=== PATIENT | male | born 1945 | race Caucasian/White ===

== ENCOUNTER 2018-01-24 18:57 | Inpatient (IN) ==
[2018-01-24] MEDS ORDERED: SODIUM CHLORIDE 0.9% 1,000 ML IV STA (19:35)
[2018-01-24 19:47] LABS: Basophils # 0.1 10*3/uL (0.0-0.2); Basophils % 0.2 % (0.0-0.8); Eosinophils # 0.1 10*3/uL (0.0-0.87); Eosinophils % 0.2 % (0.00-10.9); Hematocrit 39.4 VOL% (42.0-52.0); Hemoglobin 12.4 GM/DL (14.0-18.0); Immature Granulocytes % 0.4 %; Lymphocytes # 0.7 10*3/uL (1.4-4.0); Lymphocytes % 2.9 % (21.2-54.2); Mean Corpuscular HGB Conc 31.5 GM/DL (32-36); Mean Corpuscular Hemoglobin 25 PG (27-34); Mean Corpuscular Volume 79.8 FL (87-102); Mean Platelet Volume 11.6 FL (9.6-12.0); Monocytes # 0.9 10*3/uL (0.11-0.8); Neutrophils # 21.1 10*3/uL (1.4-7.4); Neutrophils % 92.3 % (38.7-73.9); Platelet Count 242 T/CUMM (130-400); Red Blood Count 4.94 MC/CUMM (3.8-5.5); Red Cell Distribution Width 15.7 % (9.3-17.3); White Blood Count 22.9 T/CUMM (4-12)
[2018-01-24 20:01] LABS: Lactic Acid 5.9 MMOL/L (0.4-2.0)
[2018-01-24 20:25] LABS: Alanine Aminotransferase 15 U/L (16-61); Albumin 2.6 G/DL (3.4-5.0); Alkaline Phosphatase 197 U/L (45-117); Aspartate Amino Transferase 38 U/L (0-37); Blood Urea Nitrogen 21 MG/DL (7-18); Calcium 9.2 MG/DL (8.5-10.1); Glucose 163 MG/DL (74-106); Osmolality,Calculated 289.1 MOS/KG (273-304); Potassium 3.4 MMOL/L (3.5-5.1); Sodium 142 MMOL/L (136-145); Total Protein 7.1 G/DL (6.4-8.3)
[2018-01-24 20:26] LABS: Band Neutrophils 1 % (0-10); Lymphocytes 3 % (20-55); Platelet Estimate Adequate; Segmented Neutrophils 94 % (50-85); Total Cells Counted 100
[2018-01-24] MEDS ORDERED: CEFEPIME 2,000 MG in SODIUM CHLORIDE 0.9% 100 ML IV STA (20:46)
[2018-01-24] MEDS ORDERED: VANCOMYCIN INJ 1,000 MG in SODIUM CHLORIDE 0.9% 250 ML IV STA (20:46)
[2018-01-24] MEDS ORDERED: SODIUM CHLORIDE 0.9% 2,000 ML IV STA (20:55)
[2018-01-24] MEDS ORDERED: CEFEPIME 2,000 MG VIAL ONE (21:06)
[2018-01-24] MEDS ORDERED: VANCOMYCIN 1,000 MG VIAL ONE (21:06)
[2018-01-24] MEDS ORDERED: ONDANSETRON 4 MG/2 ML VIAL IV PRN (22:38)
[2018-01-24 23:53] LABS: Apearance,Urine CLOUDY (Clear); Bilirubin,Urine Negative (Negative); Blood, Urine Large mg/dL (Negative); Glucose,Urine (UA) Negative (Negative); Granular Casts,Urine 7 /LPF (0-1); Hyaline Casts,Urine 80 /LPF (0-3); Ketones,Urine Negative (Negative); Mucus,Urine Many /LPF (Occasional); Nitrite,Urine Negative (Negative); Protein,Urine 30 MG/DL; RBC,Urine 95 /HPF (0-4); Urine Color Amber (Yellow); Urine Specific Gravity 1.018 (1.001-1.035); WBC,Urine 137 /HPF (0-6)
[2018-01-25] MEDS: SODIUM CHLORIDE 0.9% 1,000 ML IV SCH ×2 (00:04→11:10)
[2018-01-25] MEDS: PIPERACILLIN/TAZOBACTAM 3,375 MG in SODIUM CHLORIDE 0.9% 100 ML IV SCH ×2 (00:05→08:55)
[2018-01-25 00:14] LABS: Lactic Acid 3.9 MMOL/L (0.4-2.0)
[2018-01-25 03:54] LABS: Basophils % 0.2 % (0.0-0.8); Hematocrit 31.9 VOL% (42.0-52.0); Hemoglobin 10.3 GM/DL (14.0-18.0); Immature Granulocytes % 0.8 %; Immature Granulocytes Absolute 0.15 #; Lymphocytes # 0.9 10*3/uL (1.4-4.0); Mean Corpuscular HGB Conc 32.3 GM/DL (32-36); Mean Corpuscular Hemoglobin 25 PG (27-34); Mean Corpuscular Volume 77.8 FL (87-102); Mean Platelet Volume 11.6 FL (9.6-12.0); Monocytes % 5.7 % (1.7-12.7); Neutrophils # 16.1 10*3/uL (1.4-7.4); Neutrophils % 88.3 % (38.7-73.9); Platelet Count 151 T/CUMM (130-400); Red Cell Distribution Width 15.7 % (9.3-17.3); White Blood Count 18.3 T/CUMM (4-12)
[2018-01-25 04:17] LABS: Albumin 2.2 G/DL (3.4-5.0); Bilirubin,Total 1.2 MG/DL (0.2-1.0); Calcium 8.2 MG/DL (8.5-10.1); Potassium 4.6 MMOL/L (3.5-5.1); Total Protein 5.9 G/DL (6.4-8.3)
[2018-01-25] MEDS ORDERED: PNEUMOCOCCAL VACCINE (13 VALENT) 0.5 ML SYRINGE IM ONE (09:00)
[2018-01-25] MEDS ORDERED: PANTOPRAZOLE 40 MG TABLET PO SCH (09:00)
[2018-01-25] MEDS: PANTOPRAZOLE 40 MG VIAL IV SCH (10:58)
[2018-01-25] MEDS: CEFEPIME 1,000 MG in SYRINGE 1 EACH IV SCH ×2 (11:05→22:54)
[2018-01-25] MEDS ORDERED: ALBUMIN 25% 12.5 GM in PREMIX 1 EACH IV PRN (11:40)
[2018-01-25] MEDS ORDERED: ALBUMIN 25% 12.5 GM/50 ML VIAL IV ONE (11:47)
[2018-01-25] MEDS: VANCOMYCIN INJ 1,250 MG in SODIUM CHLORIDE 0.9% 250 ML IV SCH (13:59)
[2018-01-25 15:06] LABS: RBC,Peritoneal Fluid 9 T/CUMM
[2018-01-25 15:27] LABS: Neutrophils,Peritoneal Fluid 24 %
[2018-01-26] MEDS: VANCOMYCIN INJ 1,250 MG in SODIUM CHLORIDE 0.9% 250 ML IV SCH ×2 (00:28→13:25)
[2018-01-26] MEDS: SODIUM CHLORIDE 0.9% 1,000 ML IV SCH ×2 (00:28→13:22)
[2018-01-26 05:03] LABS: Basophils % 0.4 % (0.0-0.8); Eosinophils # 0.4 10*3/uL (0.0-0.87); Eosinophils % 6.1 % (0.00-10.9); Hematocrit 29.4 VOL% (42.0-52.0); Hemoglobin 9.2 GM/DL (14.0-18.0); Immature Granulocytes % 0.3 %; Immature Granulocytes Absolute 0.02 #; Lymphocytes # 0.9 10*3/uL (1.4-4.0); Lymphocytes % 12.3 % (21.2-54.2); Mean Corpuscular HGB Conc 31.3 GM/DL (32-36); Mean Corpuscular Hemoglobin 25 PG (27-34); Mean Corpuscular Volume 80.1 FL (87-102); Mean Platelet Volume 11.4 FL (9.6-12.0); Monocytes # 0.7 10*3/uL (0.11-0.8); Monocytes % 10.4 % (1.7-12.7); Neutrophils # 4.9 10*3/uL (1.4-7.4); Neutrophils % 70.5 % (38.7-73.9); Platelet Count 123 T/CUMM (130-400); Red Blood Count 3.67 MC/CUMM (3.8-5.5); Red Cell Distribution Width 15.9 % (9.3-17.3); White Blood Count 6.9 T/CUMM (4-12)
[2018-01-26 05:43] LABS: Bilirubin,Total 0.9 MG/DL (0.2-1.0); Calcium 7.9 MG/DL (8.5-10.1); Osmolality,Calculated 289.6 MOS/KG (273-304); Potassium 3.5 MMOL/L (3.5-5.1); Total Protein 4.9 G/DL (6.4-8.3)
[2018-01-26] MEDS ORDERED: DEXTROSE 50% 25 GM/50 ML VIAL IV ONE (08:16)
[2018-01-26] MEDS ORDERED: DEXTROSE 50% 25 GM/50 ML VIAL IV PRN (08:19)
[2018-01-26] MEDS ORDERED: PROPOFOL 200 MG/20 ML VIAL IV ONE (11:01)
[2018-01-26] MEDS ORDERED: LIDOCAINE 2% 5 ML VIAL ONE (11:01)
[2018-01-26] MEDS: PANTOPRAZOLE 40 MG VIAL IV SCH (12:24)
[2018-01-26] MEDS: CEFEPIME 1,000 MG in SYRINGE 1 EACH IV SCH ×2 (12:25→21:50)
[2018-01-26] MEDS ORDERED: SKIN HEALING OINT (AQUAPHOR) 50 GM TUBE TOP PRN (15:11)
[2018-01-27] MEDS: VANCOMYCIN INJ 1,250 MG in SODIUM CHLORIDE 0.9% 250 ML IV SCH (01:35)
[2018-01-27 05:33] LABS: Basophils % 0.4 % (0.0-0.8); Eosinophils # 0.5 10*3/uL (0.0-0.87); Eosinophils % 7.4 % (0.00-10.9); Hematocrit 31.6 VOL% (42.0-52.0); Hemoglobin 10.3 GM/DL (14.0-18.0); Immature Granulocytes % 0.3 %; Immature Granulocytes Absolute 0.02 #; Lymphocytes % 14.7 % (21.2-54.2); Mean Corpuscular HGB Conc 32.6 GM/DL (32-36); Mean Corpuscular Hemoglobin 26 PG (27-34); Mean Corpuscular Volume 78.6 FL (87-102); Mean Platelet Volume 12.4 FL (9.6-12.0); Monocytes # 0.9 10*3/uL (0.11-0.8); Monocytes % 12.3 % (1.7-12.7); Neutrophils # 4.5 10*3/uL (1.4-7.4); Neutrophils % 64.9 % (38.7-73.9); Platelet Count 114 T/CUMM (130-400); Red Blood Count 4.02 MC/CUMM (3.8-5.5); Red Cell Distribution Width 15.7 % (9.3-17.3); White Blood Count 6.9 T/CUMM (4-12)
[2018-01-27 05:50] LABS: Osmolality,Calculated 289.6 MOS/KG (273-304); Potassium 2.9 MMOL/L (3.5-5.1)
[2018-01-27 05:54] LABS: Microcytosis 1+; Platelet Estimate Decreased
[2018-01-27 08:01] VITALS: BP 116/61
[2018-01-27] MEDS ORDERED: SPIRONOLACTONE 50 MG TABLET PO SCH (09:00)
[2018-01-27] MEDS ORDERED: FUROSEMIDE 40 MG/4 ML VIAL IV SCH (09:00)
[2018-01-27] MEDS: POTASSIUM CHLORIDE 20 MEQ TABLET PO ONE ×2 (09:31→09:43)
[2018-01-27] MEDS: PANTOPRAZOLE 40 MG VIAL IV SCH ×2 (09:31→09:43)
[2018-01-27] MEDS: CEFEPIME 1,000 MG in SYRINGE 1 EACH IV SCH ×2 (09:34→09:43)
== END 2018-01-27 13:08 | disposition home or self-care (01) | DRG 871 ==
LOC: EDBD → EDUNIT# → N.ED 18:57 → N.EDINP 22:30 → SUATTDRO 22:30 → N.2E 22:58
PROVIDERS: ADMIT Internal Medicine Infectious Disease; ATTEND Hospitalist

== ENCOUNTER 2018-03-01 17:53 | Observation (INO) ==
[2018-03-01] MEDS ORDERED: SODIUM CHLORIDE 0.9% 500 ML IV STA (18:19)
[2018-03-01 18:47] LABS: Basophils % 0.2 % (0.0-0.8); Eosinophils % 0.1 % (0.00-10.9); Hemoglobin 12.1 GM/DL (14.0-18.0); Immature Granulocytes % 0.6 %; Immature Granulocytes Absolute 0.06 #; Lymphocytes # 0.6 10*3/uL (1.4-4.0); Lymphocytes % 5.5 % (21.2-54.2); Mean Corpuscular HGB Conc 31.8 GM/DL (32-36); Mean Corpuscular Hemoglobin 25 PG (27-34); Mean Corpuscular Volume 79.8 FL (87-102); Monocytes % 9.5 % (1.7-12.7); Neutrophils # 8.5 10*3/uL (1.4-7.4); Neutrophils % 84.1 % (38.7-73.9); Platelet Count 211 T/CUMM (130-400); Red Blood Count 4.76 MC/CUMM (3.8-5.5); Red Cell Distribution Width 16.7 % (9.3-17.3); White Blood Count 10.1 T/CUMM (4-12)
[2018-03-01 19:12] LABS: Potassium 4.4 MMOL/L (3.5-5.1)
[2018-03-01] MEDS ORDERED: ENOXAPARIN 40 MG/0.4 ML SYRINGE SUBCUT SCH (21:59)
[2018-03-01] MEDS ORDERED: ONDANSETRON 4 MG/2 ML VIAL IV PRN (21:59)
[2018-03-01] MEDS ORDERED: SODIUM CHLORIDE 0.9% 500 ML IV ONE (21:59)
[2018-03-01] MEDS: DOCUSATE SODIUM 100 MG CAPSULE PO SCH (22:30)
[2018-03-01] MEDS: SODIUM CHLORIDE 0.9% 1,000 ML IV SCH (23:05)
[2018-03-02] MEDS: SODIUM CHLORIDE 0.9% 1,000 ML IV SCH (03:13)
[2018-03-02] MEDS ORDERED: PANTOPRAZOLE 40 MG TABLET PO SCH (09:00)
[2018-03-02] MEDS ORDERED: ASPIRIN CHEW 81 MG TABLET PO SCH (09:00)
[2018-03-02] MEDS ORDERED: FEXOFENADINE 180 MG TABLET PO SCH (09:00)
[2018-03-02] MEDS: DOCUSATE SODIUM 100 MG CAPSULE PO SCH (09:08)
[2018-03-02 12:12] VITALS: BP 145/71
== END 2018-03-02 14:48 | disposition home or self-care (01) ==
LOC: EDUNIT# → EDBD → N.EDINP 17:53 → N.ED 17:53 → N.TELES 21:10
PROVIDERS: ADMIT Hospitalist; ATTEND Hospitalist

== ENCOUNTER 2018-03-23 17:35 | Inpatient (IN) ==
[2018-03-23] MEDS ORDERED: SODIUM CHLORIDE 0.9% 1,000 ML IV STA (18:42)
[2018-03-23 19:04] LABS: Basophils % 0.1 % (0.0-0.8); Hematocrit 41.9 VOL% (42.0-52.0); Hemoglobin 13.2 GM/DL (14.0-18.0); Immature Granulocytes % 0.6 %; Immature Granulocytes Absolute 0.07 #; Lymphocytes # 0.4 10*3/uL (1.4-4.0); Lymphocytes % 3.7 % (21.2-54.2); Mean Corpuscular HGB Conc 31.5 GM/DL (32-36); Mean Corpuscular Hemoglobin 24 PG (27-34); Mean Corpuscular Volume 77.3 FL (87-102); Mean Platelet Volume 9.8 FL (9.6-12.0); Monocytes # 1.1 10*3/uL (0.11-0.8); Monocytes % 9.1 % (1.7-12.7); NRBC # 0.02 10*3/uL; Neutrophils # 10.4 10*3/uL (1.4-7.4); Neutrophils % 86.5 % (38.7-73.9); Platelet Count 539 T/CUMM (130-400); Red Blood Count 5.42 MC/CUMM (3.8-5.5); Red Cell Distribution Width 16.8 % (9.3-17.3)
[2018-03-23 19:32] LABS: Lactic Acid 4.5 MMOL/L (0.4-2.0)
[2018-03-23 19:34] LABS: Alanine Aminotransferase 25 U/L (16-61); Albumin 2.3 G/DL (3.4-5.0); Alkaline Phosphatase 497 U/L (45-117); Aspartate Amino Transferase 48 U/L (0-37); Blood Urea Nitrogen 71 MG/DL (7-18); Calcium 10.9 MG/DL (8.5-10.1); Glucose 82 MG/DL (74-106); Osmolality,Calculated 277.9 MOS/KG (273-304); Sodium 129 MMOL/L (136-145); Total Protein 8.4 G/DL (6.4-8.3); Troponin I Only < 0.015 NG/ML (0.00-0.045)
[2018-03-23 19:37] LABS: Potassium 6.5 MMOL/L (3.5-5.1)
[2018-03-23 19:41] LABS: Anisocytosis 1+; Platelet Estimate Increased; Polychromasia Few; Total Cells Counted 100
[2018-03-23] MEDS ORDERED: CALCIUM GLUCONATE 2,000 MG in SODIUM CHLORIDE 0.9% 100 ML IV ONE (19:44)
[2018-03-23] MEDS ORDERED: INSULIN REGULAR 100 UNIT/ML IV STA (19:45)
[2018-03-23] MEDS ORDERED: DEXTROSE 50% 25 GM/50 ML VIAL IV STA (19:45)
[2018-03-23 20:37] LABS: Band Neutrophils 4 % (0-10); Lymphocytes 10 % (20-55); Microcytosis 1+; Segmented Neutrophils 85 % (50-85)
[2018-03-23] MEDS ORDERED: ALBUTEROL/IPRATROPIUM 3 ML NEB RESP TX PRN (20:48)
[2018-03-23] MEDS ORDERED: ALBUTEROL 2.5 MG/3 ML NEB RESP TX PRN (20:48)
[2018-03-23] MEDS ORDERED: ONDANSETRON 4 MG/2 ML VIAL IV PRN (20:54)
[2018-03-23] MEDS ORDERED: CALCIUM GLUCONATE 1,000 MG/10 ML VIAL IV ONE (20:59)
[2018-03-23] MEDS ORDERED: DEXTROSE 50% 25 GM/50 ML SYRINGE IV ONE (20:59)
[2018-03-23] MEDS ORDERED: FUROSEMIDE 40 MG/4 ML VIAL IV ONE (22:56)
[2018-03-23] MEDS: PANTOPRAZOLE 40 MG VIAL IV SCH (23:09)
[2018-03-23 23:31] LABS: Lactic Acid 5.5 MMOL/L (0.4-2.0)
[2018-03-23 23:46] LABS: INR 1.2
[2018-03-23] MEDS: SODIUM POLYSTYRENE SULFATE 15 GM/60 ML BOTTLE PO SCH (23:54)
[2018-03-24] MEDS ORDERED: SODIUM CHLORIDE 0.9% 250 ML IV ONE (02:29)
[2018-03-24 03:24] LABS: Apearance,Urine CLOUDY (Clear); Bilirubin,Urine Negative (Negative); Blood, Urine Moderate mg/dL (Negative); Glucose,Urine (UA) Negative (Negative); Hyaline Casts,Urine 105 /LPF (0-3); Ketones,Urine Negative (Negative); Mucus,Urine Many /LPF (Occasional); Nitrite,Urine Negative (Negative); Protein,Urine Negative; RBC,Urine 28 /HPF (0-4); Urine Color Amber (Yellow); Urine Specific Gravity 1.014 (1.001-1.035); WBC,Urine 75 /HPF (0-6)
[2018-03-24] MEDS: SODIUM POLYSTYRENE SULFATE 15 GM/60 ML BOTTLE PO SCH ×4 (05:08→21:36)
[2018-03-24 06:17] LABS: Basophils % 0.1 % (0.0-0.8); Hematocrit 35.6 VOL% (42.0-52.0); Hemoglobin 11.7 GM/DL (14.0-18.0); Immature Granulocytes % 0.6 %; Immature Granulocytes Absolute 0.11 #; Lymphocytes # 0.4 10*3/uL (1.4-4.0); Lymphocytes % 2.1 % (21.2-54.2); Mean Corpuscular HGB Conc 32.9 GM/DL (32-36); Mean Corpuscular Hemoglobin 25 PG (27-34); Mean Corpuscular Volume 74.8 FL (87-102); Mean Platelet Volume 9.8 FL (9.6-12.0); Monocytes # 1.5 10*3/uL (0.11-0.8); Monocytes % 8.4 % (1.7-12.7); NRBC # 0.03 10*3/uL; Neutrophils # 15.5 10*3/uL (1.4-7.4); Neutrophils % 88.8 % (38.7-73.9); Platelet Count 435 T/CUMM (130-400); Red Blood Count 4.76 MC/CUMM (3.8-5.5); Red Cell Distribution Width 16.5 % (9.3-17.3); White Blood Count 17.5 T/CUMM (4-12)
[2018-03-24 06:38] LABS: Albumin 1.9 G/DL (3.4-5.0); Bilirubin,Total 2.8 MG/DL (0.2-1.0); Calcium 10.1 MG/DL (8.5-10.1); Osmolality,Calculated 282.7 MOS/KG (273-304); Total Protein 6.2 G/DL (6.4-8.3)
[2018-03-24 07:16] LABS: Band Neutrophils 6 % (0-10); Lymphocytes 3 % (20-55); Segmented Neutrophils 82 % (50-85); Total Cells Counted 100
[2018-03-24 07:17] LABS: Hypochromasia 1+; Microcytosis 1+
[2018-03-24 07:19] LABS: Burr Cells Slight
[2018-03-24] MEDS ORDERED: LORATADINE 10 MG TABLET PO SCH (09:00)
[2018-03-24] MEDS: FUROSEMIDE 40 MG/4 ML VIAL IV SCH ×2 (09:03→17:35)
[2018-03-24] MEDS ORDERED: ALBUMIN 25% 12.5 GM in PREMIX 1 EACH IV ONE (10:08)
[2018-03-24] MEDS ORDERED: ALBUMIN 5% 12.5 GM/250 ML VIAL IV ONE (10:10)
[2018-03-24] MEDS ORDERED: TISSUE ADHESIVE 1 EACH APPLICATOR TOP ONE (10:19)
[2018-03-24] MEDS ORDERED: SODIUM CHLORIDE 0.9% 1,000 ML IV ONE (10:22)
[2018-03-24] MEDS ORDERED: ALBUMIN 25% 25 GM/100 ML VIAL IV ONE (10:25)
[2018-03-24 10:34] LABS: Lactic Acid 12.5 MMOL/L (0.4-2.0)
[2018-03-24] MEDS ORDERED: NOREPINEPHRINE 8 MG in SODIUM CHLORIDE 0.9% 242 ML IV PRN (10:36)
[2018-03-24] MEDS ORDERED: NOREPINEPHRINE 4 MG/4 ML VIAL IV ONE ×2 (10:37→10:42)
[2018-03-24] MEDS ORDERED: MORPHINE 4 MG/1 ML VIAL IV PRN (13:37)
[2018-03-24] MEDS: PANTOPRAZOLE 40 MG VIAL IV SCH (21:36)
[2018-03-25 01:26] VITALS: BP 59/39
== END 2018-03-25 01:41 | disposition expired | DRG 189 ==
LOC: EDBD → EDUNIT# → N.ED 17:35 → N.EDINP 20:01 → N.CC 21:38